=== PATIENT | female | born 1955 | race Caucasian/White ===

== ENCOUNTER → 2016-10-16 | Outpatient (CLI) | payer BC, OTHER ==
--- NOTE | 2016-10-20 09:04 | SLEEPCENT ---
DATE OF PROCEDURE: 10/16/2016 REQUESTING PROVIDER: Reyna Otto NP INTERPRETATION: Nocturnal polysomnography was performed due to concern for obstructive sleep apnea in this patient with a history of excessive somnolence and nonrestorative sleep, comorbidities of ischemic heart disease. 6 hours and 59 minutes of data were reviewed. There were 378 minutes of sleep identified. Sleep latency was short at 4.5 minutes. Rapid eye movement (REM) sleep was delayed at 200 minutes. Sleep architecture showed poor progression and fragmentation. There were two REM periods appreciated. Sleep efficiency was good at 91%. REM time was reduced in half. The patient's EKG showed atrial fibrillation with ventricular response rate of 60 beats per minute. EEG showed normal waveforms for awake and sleep. There were 266 respiratory events identified of 10 seconds in duration or greater for an apnea-hypopnea index of 42.2. The events were primarily obstructive but 84 central apneas were also seen. Respiratory events were not exclusive to sleep stage nor body posture. Arousals from respiratory events occurred 6.8 times per hour. Oxygen desaturations were seen into the 70s. There was some limb activity. Arousal events from limbs occurred only 5.6 times per hour. IMPRESSION: Severe complex obstructive sleep apnea syndrome (G47.31, G47.33). Apnea-hypopnea index of 42.2. RECOMMENDATIONS: The patient should be encouraged to return to the sleep disorder center at her earliest convenience for institution of pressure therapy. In the interim, alcohol and sedative avoidance should be practiced and caution exercised during the operation of motor vehicles.
== END ==
LOC: M SLEEP 19:45
PROVIDERS: ATTEND Nurse Practitioner Adult Health
DX: G47.30 Sleep apnea, unspecified (principal)

== ENCOUNTER → 2016-11-23 | Outpatient (CLI) | payer BC ==
--- NOTE | 2016-11-26 09:54 | SLEEPCENT ---
DATE OF PROCEDURE: 11/23/2016 ORDERED BY: LJ Morales Nocturnal polysomnography was performed for titration of pressure therapy in this patient with severe obstructive sleep apnea syndrome, apnea hypopnea index of 42.2. For testing, a [employer] Quattro full face mask of extra-small size was used. 4 cm of water pressure were applied to the circuit and the lights were extinguished. 7 hours and 51 minutes of data were reviewed. There were 376 minutes of sleep identified. Sleep latency was short at 2 minutes. The patient achieved rapid eye movement (REM) later in the study on two occasions. REM sleep latency was delayed at 298 minutes. Sleep architecture was severely fragmented throughout the study. Some improvement was seen late in the test. Overall sleep efficiency was 81%. The patient's EKG showed a sinus rhythm with an average heart rate of 54 beats per minute. EEG showed some alpha intrusion but no focal events. Otherwise, normal waveforms for awake and sleep. Pressure titration was challenged by persistence of respiratory events and poor sleep progression. Despite optimal mask fit and minimal air leak, shortly after 1 a.m., the patient was changed to a bilevel device. Best sleep was seen at an inspiratory pressure of 18 over expiratory pressure of 13 with which pressure the patient did achieve REM sleep without oxygen desaturations. There was significant limb activity scattered over the course of the study complicating the ability to optimally titrate. This activity was significantly greater than on the diagnostic study, and limb movement arousal index on this occasion was 18.3. IMPRESSION: 1. Obstructive sleep apnea syndrome (G47.33). 2. Periodic limb movement disorder (G47.61). Limb movement arousal index 18.3. RECOMMENDATION: Based on this study, optimal pressure therapy for the palliation of respiratory events is inspiratory pressure 18 over expiratory pressure of 13. Pending clinical response, interventions to reduce the frequency arousal from limb activity may also be necessary.
== END ==
LOC: M SLEEP 19:59
PROVIDERS: ATTEND Nurse Practitioner Adult Health
DX: G47.33 Obstructive sleep apnea (adult) (pediatric) (principal)